=== PATIENT | male | born 1995 | race Caucasian/White ===

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

== ENCOUNTER 2017-11-24 04:29 | Emergency (ER) | payer BC ==
[2017-11-24] MEDS ORDERED: Metoclopramide IV* 5 MG/ML 2 ML VIAL IV SLOW PU ONE (05:03)
[2017-11-24] MEDS ORDERED: NS 0.9% 1000 ML* 1,000 ML IV ONE (05:03)
[2017-11-24 06:46] VITALS: BP 127/63
--- NOTE | 2017-11-24 08:04 | ED ---
Substance Abuse/Use - HPI Summary HPI Summary: Patient is a 22 y/o M BIBA w/ c/o possible alcohol intoxication. He was found unresponsive at [facility], [place]. In the room, patient is unresponsive. Level 5 caveat. - History Of Current Complaint Chief Complaint: EDSubstanceAbuse Stated Complaint: ETOH Time Seen by Provider: 11/24/17 05:02 Hx Obtained From: EMS Hx From Patient Unobtainable Due To: Other - level 5 caveat, unresponsive in the room Ingestion History: Type/Name Of Drug - alcohol Character: Other - level 5 caveat, unresponsive in the room - Allergies/Home Medications Allergies/Adverse Reactions: Allergies Allergy/AdvReac Type Severity Reaction Status Date / Time No Known Allergies Allergy Verified 05/21/16 21:48 PMH/Surg Hx/FS Hx/Imm Hx Endocrine/Hematology History: Denies: Hx Anticoagulant Therapy, Hx Diabetes, Hx Thyroid Disease Cardiovascular History: Denies: Hx Congestive Heart Failure, Hx Deep Vein Thrombosis, Hx Hypertension , Hx Myocardial Infarction, Hx Pacemaker/ICD Respiratory History: Denies: Hx Asthma, Hx Chronic Obstructive Pulmonary Disease (COPD), Hx Lung Cancer, Hx Pneumonia, Hx Pulmonary Embolism GI History: Denies: Hx Gall Bladder Disease, Hx Gastrointestinal Bleed, Hx Ulcer, Hx Urosepsis History: Denies: Hx Kidney Stones, Hx Renal Disease Neurological History: Denies: Hx Dementia, Hx Migraine, Hx Seizures, Hx Transient Ischemic Attacks (TIA) Psychiatric History: Denies: Hx Anxiety, Hx Depression, Hx Schizophrenia, Hx Bipolar Disorder Infectious Disease History: No Infectious Disease History: Denies: Hx Hepatitis, Hx Human Immunodeficiency Virus (HIV), Traveled Outside the [place] in Last 30 Days - Family History Known Family History: Positive: Diabetes Negative: Hypertension - Social History Alcohol Use: Occasionally Substance Use Type: Reports: None Smoking Status (MU): Never Smoked Tobacco - Additional Comments History Additional Comments: level 5 caveat, unresponsive in the room Review of Systems Positive: Other - possible alcohol intoxication All Other Systems Reviewed And Are Negative: No - Comments Additional Review of Systems Comments: level 5 caveat, unresponsive in the room Physical Exam - Summary Physical Exam Summary: VITAL SIGNS: Reviewed. GENERAL: Patient is a well-developed and nourished male who is lying comfortable in the stretcher. Patient is not in any acute respiratory distress. HEAD AND FACE: No signs of trauma. No ecchymosis, hematomas or skull depressions. No sinus tenderness. EYES: PERRLA, EOMI x 2, No injected conjunctiva, no nystagmus. EARS: Hearing grossly intact. Ear canals and tympanic membranes are within normal limits. MOUTH: Oropharynx within normal limits. NECK: Supple, trachea is midline, no adenopathy, no JVD, no carotid bruit, no c- spine tenderness, neck with full ROM. CHEST: Symmetric, no tenderness at palpation LUNGS: Clear to auscultation bilaterally. No wheezing or crackles. CVS: Regular rate and rhythm, S1 and S2 present, no murmurs or gallops appreciated. ABDOMEN: Soft, non-tender. No signs of distention. No rebound no guarding, and no masses palpated. Bowel sounds are normal. EXTREMITIES: FROM in all major joints, no edema, no cyanosis or clubbing. NEURO:No acute neurological deficits. Level 5 caveat, unresponsive in the room SKIN: Dry and warm Triage Information Reviewed: Yes Vital Signs On Initial Exam: Initial Vitals Pulse BP Pulse Ox 77 119/81 98 11/24/17 04:34 11/24/17 04:34 11/24/17 04:34 Vital Signs Reviewed: Yes Diagnostics - Vital Signs Vital Signs Temp Pulse Resp BP Pulse Ox 11/24/17 06:44 97 F 56 18 127/63 99 11/24/17 05:34 108/56 11/24/17 05:04 66 123/76 98 11/24/17 05:00 101 95 11/24/17 04:51 97.5 F 60 16 114/85 98 11/24/17 04:34 77 119/81 98 - Laboratory Lab Statement: Any lab studies that have been ordered have been reviewed, and results considered in the medical decision making process. Re-Evaluation - Re-Evaluation First Eval Re-Evaluation Time: 06:10 Change: Improved Comment: Patient has sobered up and is capable of ambulating with a steady gait around the emergency department. The patient will be discharged to home and was instructed to follow up with PCP in 1-2 days. Patient understands and is agreeable with this plan. Dx of alcohol intoxication. Course/Dx - Course Assessment/Plan: Patient is a 22 y/o M BIBA w/ c/o possible alcohol intoxication. He was [facility] unresponsive at [facility]. In the room, patient is unresponsive. Level 5 caveat. Physical exam showed no other abnormal findings. During ED course, patient was given reglan 10 mg IV SLOW PU ONCE and fluids. 0610 -- Patient has sobered up and is capable of ambulating with a steady gait around the emergency department. The patient will be discharged to home and was instructed to follow up with PCP in 1-2 days. Patient understands and is agreeable with this plan. Dx of alcohol intoxication. - Diagnoses Provider Diagnoses: Alcohol intoxication Discharge - Sign-Out/Discharge Documenting (check all that apply): Patient Departure - discharge - Discharge Plan Condition: Stable Disposition: HOME Patient Education Materials: Alcohol Intoxication (ED) Referrals: [facility] - Tristin ERICKSON [Primary Care Provider] - 2 Days Additional Instructions: RETURN TO THE EMERGENCY DEPARTMENT FOR CHANGING OR WORSENING SYMPTOMS. FOLLOW UP WITH PRIMARY CARE PHYSICIAN IN 1-2 DAYS. - Attestation Statements Document Initiated by Scribe: Yes Documenting Scribe: Guero Ferrer Provider For Whom Scribe is Documenting (Include Credential): Hector Mendoza MD Scribe Attestation: Guero Talley , scribed for Hector Mendoza MD on 11/24/17 at 0804.
== END 2017-11-24 06:44 | disposition home or self-care (01) ==
LOC: ED 04:29
DX: F10.129 Alcohol abuse with intoxication, unspecified (principal)
CPT/HCPCS: 96361; 96374; 99283; J2765

== ENCOUNTER 2018-07-22 20:06 | Emergency (ER) | payer BC ==
--- NOTE | 2018-07-22 20:10 | UC ---
HPI Febrile Illness - HPI Summary HPI Summary: Patient is a 23-year-old male who presents to the urgent care with sore throat and fever for past 2 weeks. Symptoms started with fever and hit the blood and sore throat and swollen glands of the neck. Associated cough productive of yellowish-green sputum. He has been taking ibuprofen as needed, takes 400 mg at times. He has a friend with mono a few weeks ago. Denies any chest pain or shortness of breath . Denies any abdominal pain , nausea or vomiting , diarrhea or constipation. - History of Current Complaint Time Seen by Provider: 07/22/18 20:07 Hx Obtained From: Patient - Allergy/Home Medications Allergies/Adverse Reactions: Allergies Allergy/AdvReac Type Severity Reaction Status Date / Time No Known Allergies Allergy Verified 07/22/18 20:17 Home Medications: Home Medications Ibuprofen TAB* [Advil TAB*] 400 mg PO Q6H PRN 07/22/18 [History Confirmed ] PMH/Surg Hx/FS Hx/Imm Hx - Additional Past Medical History Additional PMH: Past Medical History : None Past Surgical History: No Past History of Procedure Family History : Noncontributory Social History : Student at [employer], major in [employer]. Daily smoker, occasional alcohol,marijuana use Previously Healthy: Yes Other History Of: Negative For: HIV, Hepatitis B, Hepatitis C, Anticoagulant Therapy - Surgical History Surgical History: None - Family History Known Family History: Positive: Diabetes Negative: Hypertension - Social History Alcohol Use: Occasionally Substance Use Type: None Smoking Status (MU): Never Smoked Tobacco Review of Systems All Other Systems Reviewed And Are Negative: Yes Constitutional: Positive: Fever, Chills, Fatigue Skin: Positive: Negative Eyes: Positive: Negative ENT: Positive: Sore Throat Respiratory: Positive: Cough - Productive of yellowish-green sputum. Negative: Shortness Of Breath Cardiovascular: Positive: Negative. Negative: Chest Pain Gastrointestinal: Positive: Negative Genitourinary: Positive: Negative Motor: Positive: Negative Neurovascular: Positive: Negative Musculoskeletal: Positive: Negative Neurological: Positive: Negative Psychological: Positive: Negative Is Patient Immunocompromised?: No Physical Exam - Summary Physical Exam Summary: Physical Exam: Const: Appears well. No signs of apparent distress present. Alert and oriented x 3. Musculo: Walks with a normal gait. Head/Face: Atraumatic, normocephalic on inspection. Eyes: EOMI and PERRLA in both eyes. Conjunctivae clear. No discharge noted ENT: Hearing normal, TM normal appearing bilaterally, non bulging , non erythematous . No tenderness on palpation / manipulation of Tragus. No mastoid tenderness. No tenderness to palpation on maxillary and frontal sinus. Significant pharyngeal erythema with tonsillar exudates . Uvula is midline. Anterior and posterior cervical lymphadenopathy bilaterally with tenderness to palpation Respiratory: Respirations are unlabored. Lungs clear to auscultation bilaterally, no wheezing , rhonchi or rales noted . CVS: Regular rate and Rhythm, S1S2 normal , no murmurs identified. Extremities: Peripheral circulation is grossly normal. Pulses 2+ Abdomen : Soft non tender , nondistended , Bowel sounds present . No guarding , rebound tenderness or rigidity noted. Skin: No lesions or rash located on the upper extremities or on the lower extremities. Neuro: Cranial nerves II to XII intact, motor and sensory intact. DTR Intact bilaterally. Mood is normal. Affect is normal. Triage Information Reviewed: Yes Vital Signs Reviewed: Yes Course/Dx - Course Course Of Treatment: During the visit today, we obtained Rapid strep test was neg. Possible infectious mononucleosis.We discussed the findings and further plan. Lab test was done for mono spot and LFTs He was given 1 dose of ibuprofen, prednisone and Tessalon in the clinic today. I will prescribe the medication to the pharmacy . Patient expressed understanding . - Diagnoses Provider Diagnosis: Upper respiratory infection, Pharyngitis Discharge - Sign-Out/Discharge Documenting (check all that apply): Patient Departure All imaging exams completed and their final reports reviewed: No Studies - Discharge Plan Condition: Stable Disposition: HOME Prescriptions: predniSONE [Prednisone 20 MG TAB] 40 mg PO DAILY 4 Days #8 tablet Patient Education Materials: Pharyngitis (ED), Mononucleosis (ED) Referrals: [facility] - Tristin ERICKSON [Primary Care Provider] - 1 Week Additional Instructions: Please start taking the medication as prescribed to the pharmacy . Maintain hydration Ibuprofen as needed for fever Saltwater gargles will be helpful Throat lozenges will be helpful Your blood was drawn for blood lab testing today. Results will be available tomorrow and someone will call you with any abnormal test results. Follow up with your primary care doctor or [facility] within in 1 week Return to Urgent care / ER if symptoms get worse. - Billing Disposition and Condition Condition: STABLE Disposition: Home
[2018-07-22 20:21] VITALS: BP 124/66
[2018-07-22] MEDS ORDERED: Ibuprofen TAB* 600 MG PO ONE (20:32)
[2018-07-22] MEDS ORDERED: predniSONE TAB* 20 MG PO ONE (20:38)
[2018-07-22] MEDS ORDERED: Benzonatate CAP* 100 MG PO ONE (20:39)
[2018-07-23 10:39] LABS: Red Cell Distribution Width 13 % (10.5-15)
[2018-07-23 10:49] LABS: Albumin 3.9 g/dL (3.2-5.2); Albumin/Globulin Ratio 1.3 (1-3); Indirect Bilirubin 0.8 mg/dL (0.3-1.0); Total Protein 6.9 g/dL (6.4-8.9)
[2018-07-23 13:03] LABS: Red Blood Count 4.14 10^6 /uL (4.18-5.48); White Blood Count 18.2 10^3/uL (3.5-10.8)
[2018-07-23 13:04] LABS: Hematocrit 39 % (42-52); Mean Corpuscular HGB Conc 34 g/dL (31-36); Mean Corpuscular Hemoglobin 32 pg (27-31); Mean Corpuscular Volume 93 fL (80-94)
[2018-07-23 13:11] LABS: Platelet Count Platelets clumped. 10^3/uL (150-450)
--- NOTE | 2018-07-23 19:58 | UC ---
- Progress Note Progress Note: lABORATORY RESULTS COME BACK FROM jul 22 2018. Patient is positive for Monospot given the diagnosis of acute mononucleosis. I think I think is role in the Other labs were also abnormal they all were consistent with infectious mononucleosis. These include elevated ALT and AST and direct bilirubin and white blood cell count. Also slightly anemic. Given the positive Monospot this is all consistent. Nursing to call patient and inform the patient that he has acute mononucleosis and he should follow-up his primary care physician and he can have the rest of the labs rechecked after he is better from his mononucleosis. Course/Dx - Diagnoses Provider Diagnoses: Upper respiratory infection, Pharyngitis Discharge - Sign-Out/Discharge Documenting (check all that apply): Patient Departure All imaging exams completed and their final reports reviewed: No Studies - Discharge Plan Condition: Stable Disposition: HOME Prescriptions: Benzonatate CAP* [Tessalon 100 MG CAP*] 100 mg PO TID PRN #30 cap PRN Reason: Cough predniSONE TAB* [Deltasone 20 MG TAB*] 20 mg PO DAILY #8 tab Patient Education Materials: Mononucleosis (ED), Pharyngitis (ED) Referrals: [facility] - MRTristin [Primary Care Provider] - 1 Week Additional Instructions: Please start taking the medication as prescribed to the pharmacy . Maintain hydration Ibuprofen as needed for fever Saltwater gargles will be helpful Throat lozenges will be helpful Your blood was drawn for blood lab testing today. Results will be available tomorrow and someone will call you with any abnormal test results. Follow up with your primary care doctor or [facility] within in 1 week Return to Urgent care / ER if symptoms get worse. - Billing Disposition and Condition Condition: STABLE Disposition: Home
== END 2018-07-22 20:55 | disposition home or self-care (01) ==
LOC: UCEAST 20:06
DX: J02.9 Acute pharyngitis, unspecified (principal); J06.9 Acute upper respiratory infection, unspecified; F17.210 Nicotine dependence, cigarettes, uncomplicated
CPT/HCPCS: 36415; 80076; 85025; 85060; 86308; 87651; 99212; A9270-GY; G0463; J7512